=== PATIENT | female | born 1995 | race Caucasian/White ===

== ENCOUNTER 2020-08-10 22:41 | Emergency (ER) | payer OTHER ==
[2020-08-10] MEDS ORDERED: Acetaminophen 500 MG TAB ONE (23:37)
[2020-08-10 23:54] LABS: ALT (SGPT) 10 U/L (8-55); AST (SGOT) 8 U/L (5-34); Albumin 3.4 g/dL (3.5-5.0); Alkaline Phosphatase 103 U/L (40-110); Anion Gap 13 mmol/L (10-20); BUN (Urea Nitrogen) 8 mg/dL (7.0-18.7); Bilirubin, Total 0.2 mg/dL (0.2-1.2); Calc. Creatinine Clearance 0 mL/min (70-130); Calcium 8.4 mg/dL (7.8-10.44); Carbon Dioxide 20 mmol/L (22-29); Chloride 107 mmol/L (98-107); Globulin 3.4 g/dL (2.4-3.5); Glucose 123 mg/dL (70-105); Potassium 3.2 mmol/L (3.5-5.1); Protein, Total 6.8 g/dL (6.0-8.3); Sodium 137 mmol/L (136-145)
[2020-08-10 23:56] LABS: #Eosinphils 0.2 10x3/uL (0.0-0.5); #Monocytes 0.5 10x3/uL (0.0-1.1); #Neutrophils 3.9 10x3/uL (1.5-8.4); %Basophils 0.3 % (0.0-2.0); %Eosinophils 2.6 % (0.0-6.0); %Lymphocytes 25.1 % (18.0-47.0); %Neutrophils 62.9 % (40.0-75.0); Hemoglobin 11.9 g/dL (12.0-15.5); Mean Corpuscular HGB CONC 35.4 g/dL (32.0-36.0); Mean Corpuscular Hemoglobin 31.4 pg (27.0-33.0); Mean Corpuscular Volume 88.7 fl (81.6-98.3); Mean Platelet Volume 11.5 fl (7.4-10.4); Platelet Count 182 10x3/uL (150-450); RBC Distribution Width 13.2 % (11.5-14.5); Red Blood Cell (RBC) Count 3.79 10x6/uL (3.90-5.03); White Blood Cell (WBC) Count 6.3 10x3/uL (3.5-10.5)
== END 2020-08-11 01:20 | disposition home or self-care (01) ==
LOC: CSHERS 22:41
DX: J02.9 Acute pharyngitis, unspecified (principal)
CPT/HCPCS: 71045; 80053; 85025; 93005; 93010

== ENCOUNTER 2024-12-03 16:25 | Inpatient (IN) | payer OTHER ==
[2024-12-03] MEDS ORDERED: Lidocaine 1% (PF) 30 ML VIAL SC PRN (17:14)
[2024-12-03] MEDS ORDERED: Diphenoxylate HCl/Atropine Tablet PO PRN ×2 (17:14)
[2024-12-03] MEDS ORDERED: Acetaminophen 500 MG TAB PO PRN (17:14)
[2024-12-03] MEDS ORDERED: Ondansetron PF 4 MG/2 ML Vial IVP PRN ×2 (17:14→17:50)
[2024-12-03] MEDS ORDERED: Carboprost 250 MCG/ML AMP IM PRN (17:14)
[2024-12-03] MEDS ORDERED: Tranexamic Acid 1,000 MG/10 ML VIAL IVP PRN (17:14)
[2024-12-03] MEDS ORDERED: hydrALAZINE 20 MG/ML VIAL SLOW IVP PRN ×2 (17:14→21:07)
[2024-12-03] MEDS ORDERED: Methylergonovine 0.2 MG/ML VIAL IM PRN (17:14)
[2024-12-03] MEDS ORDERED: Oxytocin 30 units/NS 500 ML 500 ML IV SCH ×3 (17:15)
[2024-12-03] MEDS ORDERED: Famotidine/PF 20 mg/2ml Vial SLOW IVP PRN (17:42)
[2024-12-03] MEDS ORDERED: Bicitra 30 ML UDCUP PO PRN (17:42)
[2024-12-03] MEDS ORDERED: Azithromycin 500 MG in Sodium Chloride 0.9% 250 ML 250 ML IVPB SCH (17:45)
[2024-12-03] MEDS ORDERED: Meperidine HCl/PF 25 MG (1 mL) VIAL SLOW IVP PRN (17:50)
[2024-12-03] MEDS ORDERED: diphenhydrAMINE 50 MG/ML VIAL IVP PRN (17:50)
[2024-12-03] MEDS ORDERED: Ketorolac Tromethamine 30 MG (1 mL) VIAL IVP SCH (18:00)
[2024-12-03] MEDS ORDERED: Communication Order-Pharmacy FS SCH (18:00)
[2024-12-03 18:14] LABS: Hematocrit 33.0 % (34.9-44.5); Hemoglobin 11.0 g/dL (12.0-15.5); Mean Corpuscular Hemoglobin 28.4 pg (27.0-33.0); Mean Corpuscular Volume 85.1 fL (81.6-98.3); Platelet Count 149 10x3/uL (150-450); Red Blood Cell (RBC) Count 3.88 10x6/uL (3.90-5.03); White Blood Cell (WBC) Count 5.66 10x3/uL (3.5-10.5)
[2024-12-03 18:22] VITALS: BMI 42.0
[2024-12-03 18:48] LABS: Syphilis Antibody Index 0.07 S/CO (<1.00 Non-Reactive)
[2024-12-03 18:49] LABS: Hep B Surf Ag - L&D Non-Reactive S/CO (NonReactive)
[2024-12-03 19:35] LABS: Glucose 200 mg/dL (70-105)
[2024-12-03] MEDS ORDERED: Lanolin Ointment 7 GM TUBE TOP PRN (21:07)
[2024-12-03] MEDS ORDERED: Acetaminophen 325 MG TAB PO PRN (21:07)
[2024-12-03] MEDS ORDERED: Simethicone Chewable 80 MG TAB PO PRN (21:07)
[2024-12-04] MEDS: Dexamethasone 10 MG/ML VIAL ONE (01:14)
[2024-12-04] MEDS: PHENYLEPHRINE-NS 100 MCG/ML 10 ML SYRINGE ONE (01:15)
[2024-12-04] MEDS: Oxytocin 10 UNITS/ML VIAL ONE (01:15)
[2024-12-04] MEDS: Tranexamic Acid 1,000 MG/10 ML VIAL ONE (01:15)
[2024-12-04] MEDS: Ondansetron PF 4 MG/2 ML Vial ONE (01:15)
[2024-12-04] MEDS: Ketorolac Tromethamine 30 MG (1 mL) VIAL ONE (01:16)
[2024-12-04] MEDS: Erythromycin Base 0.5% Oint 1 GM TUBE ONE (01:16)
[2024-12-04] MEDS: Ondansetron PF 4 MG/2 ML Vial IVP PRN (03:06)
[2024-12-04] MEDS: Ketorolac Tromethamine 30 MG (1 mL) VIAL IVP PRN (03:27)
[2024-12-04 05:37] LABS: Hematocrit 31.3 % (34.9-44.5); Hemoglobin 10.2 g/dL (12.0-15.5); Mean Corpuscular Hemoglobin 28.2 pg (27.0-33.0); Mean Corpuscular Volume 86.5 fL (81.6-98.3); Platelet Count 156 10x3/uL (150-450); Red Blood Cell (RBC) Count 3.62 10x6/uL (3.90-5.03); White Blood Cell (WBC) Count 12.25 10x3/uL (3.5-10.5)
[2024-12-04] MEDS ORDERED: HYDROcodone/Acetaminophen 5/325 mg Tablet PO PRN (07:00)
[2024-12-04] MEDS: Ferrous Sulfate 325 MG TAB PO SCH (08:53)
[2024-12-04] MEDS: HYDROcodone/Acetaminophen 5/325 mg Tablet PO PRN (09:03)
[2024-12-04] MEDS ORDERED: Dextrose 50% Abboject 50 ML SYRINGE SLOW IVP PRN (09:47)
[2024-12-04] MEDS ORDERED: Glucagon 1 MG/ML KIT IM PRN (09:47)
[2024-12-04] MEDS: metFORMIN 500 MG TAB PO SCH (17:51)
[2024-12-05] MEDS: Ibuprofen 800 MG TAB PO SCH (00:19)
[2024-12-05 05:41] LABS: Hematocrit 30.1 % (34.9-44.5); Hemoglobin 9.8 g/dL (12.0-15.5)
[2024-12-06] MEDS: Hepatitis B Vaccine 10 MCG/0.5 ML SYR ONE (07:17)
[2024-12-06] MEDS: Boostrix 0.5 ML (Tdap) VIAL (>/=7 yrs of age) IM ONE (07:18)
[2024-12-06] MEDS ORDERED: Furosemide 40 MG in Sodium Chloride 0.9% 90 ML IVPB SCH (08:30)
[2024-12-06] MEDS ORDERED: Furosemide 40 MG (4 mL) VIAL SLOW IVP SCH ×2 (08:45)
[2024-12-06] MEDS: Furosemide 40 MG (4 mL) VIAL SLOW IVP SCH ×2 (09:50→16:32)
[2024-12-07] MEDS: Furosemide 20 MG (2 mL) VIAL SLOW IVP SCH (06:12)
[2024-12-07 09:17] VITALS: BP 119/76; TEMP 98.2
== END 2024-12-07 12:30 | disposition home or self-care (01) | DRG 788 ==
LOC: CSHLD/OP 16:25 → CSHLD 19:41 → CSHPP 23:05
PROVIDERS: ADMIT Family Medicine; ATTEND Family Medicine
PROC: 10D00Z1 Extraction of Products of Conception, Low, Open Approach (ICD-10-PCS; principal; 2024-12-03)
DX: O24.12 Pre-existing type 2 diabetes mellitus, in childbirth (principal); O99.214 Obesity complicating childbirth; E66.9 Obesity, unspecified; Z3A.39 39 weeks gestation of pregnancy; Z37.0 Single live birth
CPT/HCPCS: 36415; 36416; 51702; 82947; 85014; 85018; 85027; 86780; 86850; 86900; 86901; 87340; 99285; J0456; J1100; J1885; J1940; J2175; J2274; J2405; J2590; J3010; J3490; J7050

== ENCOUNTER 2024-12-15 02:16 | Emergency (ER) | payer OTHER | END 2024-12-15 02:41 | disposition home or self-care (01) | LOC: CSHERS 02:16 | DX: O90.0 Disruption of cesarean delivery wound (principal) | CPT/HCPCS: 99283 ==

== ENCOUNTER 2024-12-19 12:33 | Outpatient (CLI) | payer OTHER | END 2024-12-19 12:34 | disposition home or self-care (01) | LOC: CSHWCC 12:33 | PROVIDERS: ATTEND Nurse Practitioner Family | DX: O90.0 Disruption of cesarean delivery wound (principal) | CPT/HCPCS: 11042; 99213; G0463 ==

== ENCOUNTER 2024-12-26 10:23 | Outpatient (CLI) | payer OTHER | END 2024-12-26 10:24 | disposition home or self-care (01) | LOC: CSHWCC 10:23 | PROVIDERS: ATTEND Nurse Practitioner Family | DX: O90.0 Disruption of cesarean delivery wound (principal) | CPT/HCPCS: 11042 ==

== ENCOUNTER 2025-01-09 11:13 | Outpatient (CLI) | payer OTHER | END 2025-01-09 11:14 | disposition home or self-care (01) | LOC: CSHWCC 11:13 | PROVIDERS: ATTEND Nurse Practitioner Family | DX: O90.0 Disruption of cesarean delivery wound (principal) | CPT/HCPCS: 11042; 97605 ==

== ENCOUNTER 2025-01-16 13:45 | Outpatient (CLI) | payer OTHER | END 2025-01-16 13:46 | disposition home or self-care (01) | LOC: CSHWCC 13:45 | PROVIDERS: ATTEND Nurse Practitioner Family | DX: O90.0 Disruption of cesarean delivery wound (principal) | CPT/HCPCS: 11042; 97605 ==

== ENCOUNTER 2025-01-23 12:34 | Outpatient (CLI) | payer OTHER | END 2025-01-23 12:35 | disposition home or self-care (01) | LOC: CSHWCC 12:34 | PROVIDERS: ATTEND Nurse Practitioner Family | DX: O90.0 Disruption of cesarean delivery wound (principal) | CPT/HCPCS: 97605; 99212; G0463 ==

== ENCOUNTER 2025-01-30 10:27 | Outpatient (CLI) | payer OTHER | END 2025-01-30 10:28 | disposition home or self-care (01) | LOC: CSHWCC 10:27 | PROVIDERS: ATTEND Nurse Practitioner Family | DX: O90.0 Disruption of cesarean delivery wound (principal) | CPT/HCPCS: 11042; 97605 ==

== ENCOUNTER 2025-02-06 11:17 | Outpatient (CLI) | payer OTHER | END 2025-02-06 11:18 | disposition home or self-care (01) | LOC: CSHWCC 11:17 | PROVIDERS: ATTEND Nurse Practitioner Family | DX: O90.0 Disruption of cesarean delivery wound (principal) | CPT/HCPCS: 11042; 97605 ==

== ENCOUNTER 2025-02-13 10:49 | Outpatient (CLI) | payer MEDICAID | END 2025-02-13 10:50 | disposition home or self-care (01) | LOC: CSHWCC 10:49 | PROVIDERS: ATTEND Nurse Practitioner Family | DX: O90.0 Disruption of cesarean delivery wound (principal) | CPT/HCPCS: 11042; 99212; G0463 ==